=== PATIENT | female | born 1935 | race Caucasian/White ===

== ENCOUNTER → 2023-08-27 10:02 | Outpatient (REF) | payer OTHER, SELFPAY | LOC: RAD 10:02 | PROVIDERS: ATTENDING PHYSICIAN Internal Medicine | DX: Z78.9 Other specified health status (principal); M79.604 Pain in right leg; M79.605 Pain in left leg | CPT/HCPCS: 93922; 93925 ==

== ENCOUNTER 2023-11-12 08:13 | Emergency (ER) | payer OTHER, SELFPAY ==
[2023-11-12 08:18] VITALS: BP 185/117
--- NOTE | 2023-11-12 08:54 | ED.GENMED ---
History of Present Illness
General
Chief Complaint: Abdominal Symptoms
Source: patient and family (Daughter)
Exam Limitations: none
Time Seen by Provider: 11/12/23 08:21
Nursing documentation reviewed up to this point in time: agreed with
History of Present Illness
History of Present Illness:
88-year-old female with a past medical history of hypertension, chronic sinusitis who presents to the emergency room for evaluation of nausea and fatigue. Patient reports symptoms have been ongoing for the past 3 days�she reports that she has
nausea and lack of appetite. Because of that she has not been eating as much and has not been drinking as much as usual. She says that she is starting to feel very fatigued and generalized weakness. Came to the emergency room to be evaluated for
this. She denies any vomiting despite her nausea. Has not had any diarrhea. She denies any abdominal pain. She denies any chest pain. She denies any shortness of breath. She says she did have some palpitations yesterday but nothing consistent.
She denies any fever or chills but says that she has had subjective feeling of being 'hot all over.' She denies any dysuria or change in urinary frequency currently but says that earlier in the week she had some urinary symptoms that resolved.
She denies any other complaints. She does note that she has been on and off of doxycycline for chronic sinusitis says that she discontinued it a few days ago. No other new medications or adjustments to her medications.
Past History
Past History
ED Past Medical History: HTN
ED Past Surgical History: Gynecological and Other (Cataract surgery)
Review of Systems
Review of Systems
All Other Systems: ROS reviewed and negative except as documented in HPI and ROS
Constitutional: Reports fatigue; Denies fever or chills
EENT: Denies sore throat or runny nose
Respiratory: Denies cough or trouble breathing
Cardiac: Denies chest pain
ABD/GI: Reports nausea and anorexia; Denies abdominal pain, vomiting or diarrhea
: Denies dysuria, frequency or flank pain
Musculoskeletal: Denies neck pain or back pain
Neurological: Denies headache
Phy Exam
Physical Exam
Physical Exam:
General: Awake, alert, oriented x3; no acute distress
Head: Normocephalic, atraumatic
Eyes: Conjunctiva normal, sclera anicteric
Throat: Airway intact, dry mucous membranes
Neck: Trachea midline, supple without meningismus
Lungs: Clear to auscultation bilaterally, no wheezing, rales, rhonchi
Heart: Regular rate and rhythm, no murmurs, gallops, or rubs
Abd: Soft, non distended, very mild tenderness in the right upper quadrant and epigastric region but no peritoneal signs, no abdominal masses
Neuro: Cranial nerves grossly intact, speech fluid, no gross motor or sensory deficits
Skin: no rash
Extremities: No edema in extremities, equal pulses in all extremities
Scores
Heart Failure Risk
Heart Failure Risk Score: Not Applicable
Heart Score for Chest Pain Patients
STEMI patient?: Not applicable
Withdrawal Assessment of Alcohol
Withdrawal Assessment Completed?: Not applicable
Course
Orders/Labs/Results
Orders:
Orders
11/12/23 08:22
Electrocardiogram (*1) Urgent
Reason for Study: Fatigue / Weakness
EKG- Treatment ONCE
COVID-19 Antigen Urgent
Source: Nasal Swab
Complete Blood Count/With Diff Urgent
Comprehensive Metabolic Panel Urgent
Lipase Urgent
Troponin I Urgent
Urinalysis Reflex To Culture Urgent
11/12/23 08:53
NSS 1000mL Bolus over 1 hr 0.9% Sodium Chloride 1000 ml [Nss] 1,000 ml IV BOLUS
US Abdomen Complete/Upper Urgent
Comment:
Reason For Exam: upper abd tenderness, nausea
Vital Signs
Initial and Last Documented VS:
Initial Vital Signs
Temp Pulse Resp BP Pulse Ox
36.7 C 74 18 185/117 97
11/12/23 08:18 11/12/23 08:18 11/12/23 08:18 11/12/23 08:18 11/12/23 08:18
Last Documented Vital Signs
Temp Pulse Resp BP Pulse Ox
36.7 C 74 18 185/117 97
11/12/23 08:18 11/12/23 08:18 11/12/23 08:18 11/12/23 08:18 11/12/23 08:18
MDM/Problems Addressed
Differential Diagnosis Includes:
Nausea: GERD/gastritis, cholelithiasis, viral syndrome, anginal equivalent
Fatigue: Dehydration, electrolyte derangement, anemia
MDM/Problems Addressed:
88-year-old female presents for evaluation of nausea for the past 3 days associate with decreased appetite, decreased p.o. intake and resultant generalized weakness/fatigue. Hypertensive but otherwise normal vitals. Physical exam as above. Will
check an EKG. Will plan to place an IV check labs including a CBC and a CMP, troponin. Will check lipase. Send COVID swab. Will send for an upper abdominal ultrasound. Will provide some IV fluids and antiemetic. Monitor closely reassess after
the above.
Acute Exacerbation and/or Progression of Chronic Illness: HTN
*Radiology
Radiology exam reviewed: radiology read reviewed
*Pulse Oximetry
Patient hypoxic: no
*Critical Care Note
Total Time (30-74mins, 75-104mins- exclusive of procedures): Not Applicable
Data Reviewed
Review of Other/Old Records Reveals: Labs and Records
Source: patient and family
ED Attending Note
-
Portions of this chart may have been created with voice recognition software.� Occasional wrong word or��sound alike� substitutions may have occurred due to the inherent limitations of voice recognition software.
Discharge Plan
Departure
Prescriptions:
No Action
temazepam 15 mg Capsule
15 mg PO HS PRN (Reason: sleep)
diazepam 2 mg Tablet
2 mg PO TIDPRN PRN (Reason: anxiety/dizziness)
bismuth subsalicylate [Pepto-Bismol] 262 mg/15 mL Suspension
524 mg PO TIDPRN PRN (Reason: stomach issues)
Tylenol Sinus 30-500 mg Tablet
1 tab PO DAILY
Pepto-Bismol 262 mg Tablet
262 mg PO TIDPRN PRN (Reason: stomach issues)
azelastine 137 mcg (0.1 %) [place],Non-Aerosol
2 spray INTRANASAL BID
fluticasone propionate [Flonase] 50 mcg/actuation [place],Suspension
2 spray INTRANASAL DAILY
levothyroxine 112 mcg Tablet
112 mcg PO MOTUWETHFRSA@0800
levothyroxine 112 mcg Tablet
56 mcg PO CAST@0800
Opcon-A 0.40076-6.315 % Drops
1 drp BOTH EYES BIDPRN PRN (Reason: eye irritation)
hydrochlorothiazide 12.5 mg Tablet
12.5 mg PO DAILY PRN (Reason: systolic>160)
Mylanta suspension
1 dose PO BIDPRN PRN (Reason: stomach issues)
prednisolone acetate 1 % Drops,Suspension
1 drp BOTH EYES DAILYPRN PRN (Reason: eye irritation)
Interventions
Interventions:
*Risk Screen - Suicide Last Done: 11/12/23 08:18
*General Assessment Last Done: 11/12/23 08:18
*Neglect/Abuse Screening Last Done: 11/12/23 08:18
*ED COVID-19 Vaccine History Last Done: 11/12/23 08:18
Discharge Date and Time
Print Language: URDU
[2023-11-12] MEDS: PROTONIX IV 40 MG IV (09:19)
[2023-11-12] MEDS: ZOFRAN 4 MG IV (09:19)
[2023-11-12] MEDS: NSS 1000 IV (09:19)
[2023-11-12 09:27] LABS: Urine Albumin Negative (Neg - Trace); Urine Bilirubin Negative (Negative); Urine Character Clear (Clear); Urine Color Yellow; Urine Glucose Negative (Negative); Urine Ketone Negative (Negative); Urine Leukocyte Negative (Negative); Urine Nitrite Negative (Negative); Urine Occult Blood Trace (Negative); Urine Specific Gravity 1.015 (<1.030); Urine Urobilinogen Negative (Neg - 1+)
[2023-11-12 09:32] LABS: % Basophils 0.5 % (0-2); % Eosinophils 0.9 % (0-6); % Immature Granulocytes 0.3 % (0-0.5); % Lymphocytes 18.9 % (20.5-51.1); % Neutrophils 70.4 % (42.2-75.2); Absolute Eosinophils 0.1 10^3/uL (0-0.7); Absolute Lymphocytes 1.1 10^3/uL (1.2-3.4); Absolute Monocytes 0.5 10^3/uL (0.1-0.6); Absolute Neutrophils 4.1 10^3/uL (1.4-6.5); Hematocrit 41.4 % (37.0-47.0); Hemoglobin 14.6 g/dL (12.0-16.0); Mean Corp Hgb Conc. 35.3 g/dL (33.0-37.0); Mean Corpuscular Hgb 30.8 pg (27.0-31.0); Mean Corpuscular Volume 87.3 fL (81.0-99.0); Mean Platelet Volume 10.5 fL (7.4-10.4); Nucleated Red Blood Cells % 0 %; Platelet Count 234 10^3/uL (130-400); Red Blood Cell Count 4.74 10^6/uL (4.20-5.40); Red Cell Dist. Width 12.4 % (11.5-14.5); White Blood Cell Count 5.8 10^3/uL (4.8-10.8)
[2023-11-12 09:36] LABS: ALT (SGPT) 20 U/L (0-35); AST (SGOT) 27 U/L (14-36); Albumin 4.5 g/dl (3.5-5.0); Alkaline Phosphatase 70 U/L (38-126); Blood Urea Nitrogen 16 mg/dl (7-17); Calcium 9.9 mg/dl (8.4-10.2); Carbon Dioxide 27 mmol/L (22-30); Chloride 103 mmol/L (98-107); Glucose 110 mg/dl (70-99); Lipase 149 U/L (23-300); Potassium 3.2 mmol/L (3.5-5.1); Sodium 139 mmol/L (135-145); Total Bilirubin 0.8 mg/dl (0.2-1.3); Total Protein 7.3 g/dl (6.3-8.2); eGFR > 60.00
[2023-11-12 09:45] LABS: COVID-19 Antigen Negative (Negative)
[2023-11-12 09:47] LABS: Troponin I < 0.012 ng/ml
[2023-11-12 10:50] LABS: Urine Red Blood Cell 0-2 /HPF (0-2); Urine White Cell 0-2 /HPF (0-5)
[2023-11-12 12:22] VITALS: BP 191/80
== END 2023-11-12 12:25 | disposition home or self-care (01) ==
LOC: EMR 08:13
PROVIDERS: EMERGENCY PHYSICIAN Emergency Medicine; FAMILY PHYSICIAN Internal Medicine
DX: R11.0 Nausea (principal); R53.83 Other fatigue; I10 Essential (primary) hypertension; Z11.52 Encounter for screening for COVID-19
CPT/HCPCS: 99284; 96374; 96375; 76700; 80053; 81003; 81015; 83690; 84484; 85025; 87811; 93005

== ENCOUNTER → 2024-03-21 15:20 | Outpatient (REF) | payer MEDICARE, SELFPAY | LOC: HWRAD 15:20 | PROVIDERS: ATTENDING PHYSICIAN Otolaryngology; FAMILY PHYSICIAN Internal Medicine | DX: R09.81 Nasal congestion (principal); J32.0 Chronic maxillary sinusitis | CPT/HCPCS: 70486 ==

== ENCOUNTER → 2024-05-25 15:24 | Outpatient (REF) | payer MEDICARE, SELFPAY | LOC: HWWDC 15:24 | PROVIDERS: ATTENDING PHYSICIAN Internal Medicine | DX: Z12.31 Encounter for screening mammogram for malignant neoplasm of breast (principal) | CPT/HCPCS: 77063; 77067 ==

== ENCOUNTER → 2024-11-01 10:38 | Outpatient (REF) | payer MEDICARE, SELFPAY | LOC: RAD 10:38 | PROVIDERS: ATTENDING PHYSICIAN Internal Medicine | DX: R10.32 Left lower quadrant pain (principal) | CPT/HCPCS: 74177; Q9967 ==

== ENCOUNTER 2024-11-08 13:09 | Emergency (ER) | payer MEDICARE, SELFPAY ==
[2024-11-08 13:29] VITALS: BP 201/109
[2024-11-08 14:05] LABS: Urine Albumin Negative (Neg - Trace); Urine Bilirubin Negative (Negative); Urine Character Clear (Clear); Urine Color Yellow; Urine Glucose Negative (Negative); Urine Ketone Negative (Negative); Urine Leukocyte 1+ (Negative); Urine Nitrite Negative (Negative); Urine Occult Blood 1+ (Negative); Urine Specific Gravity 1.005 (<1.030); Urine Urobilinogen Negative (Neg - 1+)
[2024-11-08 14:06] LABS: % Basophils 0.9 % (0-2); % Eosinophils 0.6 % (0-6); % Immature Granulocytes 0.3 % (0-0.5); % Lymphocytes 19.8 % (20.5-51.1); % Monocytes 10.5 % (1.7-9.3); % Neutrophils 67.9 % (42.2-75.2); Absolute Basophils 0.1 10^3/uL (0-0.2); Absolute Lymphocytes 1.3 10^3/uL (1.2-3.4); Absolute Monocytes 0.7 10^3/uL (0.1-0.6); Absolute Neutrophils 4.6 10^3/uL (1.4-6.5); Hemoglobin 13.9 g/dL (12.0-16.0); Mean Corp Hgb Conc. 34.8 g/dL (33.0-37.0); Mean Corpuscular Hgb 30.8 pg (27.0-31.0); Mean Corpuscular Volume 88.7 fL (81.0-99.0); Mean Platelet Volume 10.2 fL (7.4-10.4); Nucleated Red Blood Cells % 0 %; Platelet Count 240 10^3/uL (130-400); Red Blood Cell Count 4.51 10^6/uL (4.20-5.40); Red Cell Dist. Width 12.7 % (11.5-14.5); White Blood Cell Count 6.8 10^3/uL (4.8-10.8)
[2024-11-08 14:17] LABS: ALT (SGPT) 44 U/L (0-35); AST (SGOT) 46 U/L (14-36); Albumin 4.8 g/dl (3.5-5.0); Alkaline Phosphatase 69 U/L (38-126); Blood Urea Nitrogen 16 mg/dl (7-17); Calcium 10.2 mg/dl (8.4-10.2); Carbon Dioxide 25 mmol/L (22-30); Chloride 101 mmol/L (98-107); Glucose 119 mg/dl (70-99); Potassium 3.4 mmol/L (3.5-5.1); Sodium 134 mmol/L (135-145); Total Bilirubin 0.8 mg/dl (0.2-1.3); Total Protein 7.5 g/dl (6.3-8.2); eGFR 54.53
[2024-11-08 15:03] LABS: Urine Urothelial Cell 0-2 /LPF (FEW)
[2024-11-08 15:04] LABS: Urine Red Blood Cell 0-2 /HPF (0-2); Urine White Cell 0-2 /HPF (0-5)
[2024-11-08 15:05] LABS: Urine Bacteria Few (Negative)
[2024-11-08 18:32] VITALS: BP 169/136
[2024-11-08 19:46] VITALS: BP 189/125
[2024-11-08 20:07] VITALS: BP 183/99
--- NOTE | 2024-11-08 22:11 | ED.GENMED ---
History of Present Illness
General
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
Source: patient and family (daughter)
Exam Limitations: none
Time Seen by Provider: 11/08/24 18:07
Nursing documentation reviewed up to this point in time: agreed with
History of Present Illness
History of Present Illness:
Patient to ED wtih complaint of pelvic pressure when sitting. Has been using AZO with relief but when she stops med the discomfort returns. SHe states she was treated recently for UTI and is unsure if infection cleared. SHe has been referred to
urology by PCP, has appt on 12/04. Brought to ED by daughter for eval. SHe denies fever/chills, n/v/d. No abdominal or back pain. No pain with urination
Past History
Past History
ED Past Medical History: HTN
ED Past Surgical History: Gynecological and Other (Cataract surgery)
Review of Systems
Review of Systems
Allergies reviewed?: Yes
All Other Systems: ROS reviewed and negative except as documented in HPI and ROS
Phy Exam
General Physical Exam
General Presentation: well appearing and no apparent distress
General age: appears stated age
General Skin: warm and dry
General Habitus: normal
Cardiovascular Exam
Cardiovascular Exam: regular rate/rhythm
Pulmonary Exam
Pulmonary Exam: lungs clear and no respiratory distress
Gastrointestinal Exam
Gastrointestinal Exam: normal bowel sounds, non tender, soft, no organomegaly and non distended
Rectal Exam: normal external exam, normal sphincter tone and no stool
Musculoskeletal Exam
Musculoskeletal Exam: full ROM and neuro vasc intact
Skin Exam
Skin Exam: normal color, warm/dry and no rash
Psychiatric Exam
Psychiatric Exam: normal mood/affect
Course
Orders/Labs/Results
Orders:
Orders
11/08/24 13:54
Complete Blood Count/With Diff Urgent
Comprehensive Metabolic Panel Urgent
Urinalysis Reflex To Culture Urgent
Date Specimen was Collected: 11/08/24
Time Specimen was Collected: 13:45
Urine Microscopic Reflex Cult Urgent
Urine Culture Urgent
KELLY Source: U
Specimen Description:
Date Specimen was Collected: 11/08/24
Time Specimen was Collected: 13:45
Abnormal Lab Results
11/08/24
13:54
Absolute Monos (auto) 0.7 H 10^3/uL
(0.1-0.6)
Lymphocytes % 19.8 L %
(20.5-51.1)
Monocytes % 10.5 H %
(1.7-9.3)
Sodium 134 L mmol/L
(135-145)
Potassium 3.4 L mmol/L
(3.5-5.1)
Glucose 119 H mg/dl
(70-99)
AST 46 H U/L
(14-36)
ALT 44 H U/L
(0-35)
Ur Occult Blood Reflex 1+ A
(Negative)
Leukocyte Esterase Rfl 1+ A
(Negative)
Urine Bacteria (Reflex) Few A
(Negative)
11/08/24 13:54
11/08/24 13:54
Vital Signs
Initial and Last Documented VS:
Initial Vital Signs
Temp Pulse Resp BP Pulse Ox
97.9 F 80 18 201/109 97
11/08/24 13:29 11/08/24 13:29 11/08/24 13:29 11/08/24 13:29 11/08/24 13:29
Last Documented Vital Signs
Temp Pulse Resp BP Pulse Ox
97.9 F 73 16 183/99 97
11/08/24 13:29 11/08/24 19:50 11/08/24 19:50 11/08/24 20:07 11/08/24 22:13
*Radiology
Radiology exam reviewed: radiology read reviewed
*Pulse Oximetry
SaO2: 97
Oxygen Mode of Delivery: Room air
Patient hypoxic: no
*Critical Care Note
Total Time (30-74mins, 75-104mins- exclusive of procedures): Not Applicable
Update Note
Update Note:
Patient to ED with complaint of 'pelvic pressure' with sitting. She had hysterectomy prior and reports vaginal atrophy. Inserts vaginal cream with a qtip. SHe also notes that urethra has atrophied. SHe has an appoinement on 12/[address]
of abd and pelvis last week noted colitis and she has been taking flagyl for this. CT also noted a large amt of stool at rectum and distal colon. Rectal exam performed, no stool in rectum. Labs reviewed with her. No concerning findings. UA neg
for UTI. VSS and she remains afebrile. WIll discharge home and she will follow up with PCP this week, urololgy as scheduled. Given instructions on s/s to return ot ED and she is agreeable to plan.
ED Attending Note
-
Portions of this chart may have been created with voice recognition software.� Occasional wrong word or��sound alike� substitutions may have occurred due to the inherent limitations of voice recognition software.
Discharge Plan
Departure
Patient Disposition: Home (Routine Discharge)
Date of Disposition: 11/08/24
Time of Disposition: 19:47
Patient with high blood pressure during this ER visit?: No
Condition: Good
Covid-19: Not Applicable
Discharge Problem:
Pelvic pressure in female
Instructions: Pelvic pain - ED discharge instructions
Prescriptions:
No Action
temazepam 15 mg Capsule
15 mg PO HS PRN (Reason: sleep)
diazepam 2 mg Tablet
2 mg PO TIDPRN PRN (Reason: anxiety/dizziness)
bismuth subsalicylate [Pepto-Bismol] 262 mg/15 mL Suspension
524 mg PO TIDPRN PRN (Reason: stomach issues)
Tylenol Sinus 30-500 mg Tablet
1 tab PO DAILY
Pepto-Bismol 262 mg Tablet
262 mg PO TIDPRN PRN (Reason: stomach issues)
azelastine 137 mcg (0.1 %) [place],Non-Aerosol
2 spray INTRANASAL BID
fluticasone propionate [Flonase] 50 mcg/actuation [place],Suspension
2 spray INTRANASAL DAILY
levothyroxine 112 mcg Tablet
112 mcg PO MOTUWETHFRSA@0800
levothyroxine 112 mcg Tablet
56 mcg PO CAST@0800
Opcon-A 0.26793-4.315 % Drops
1 drp BOTH EYES BIDPRN PRN (Reason: eye irritation)
hydrochlorothiazide 12.5 mg Tablet
12.5 mg PO DAILY PRN (Reason: systolic>160)
Mylanta suspension
1 dose PO BIDPRN PRN (Reason: stomach issues)
prednisolone acetate 1 % [place],Suspension
1 drp BOTH EYES DAILYPRN PRN (Reason: eye irritation)
pantoprazole [Protonix] 40 mg tablet,delayed release (DR/EC)
40 mg PO DAILY Qty: 30 0RF
sucralfate [Carafate] 100 mg/mL suspension
10 ml PO ACHS Qty: 1000 0RF
Referrals:
Dagoberto Rios MD [Family Provider, Internal Medicine]
Activity Restrictions/Additional Instructions:
Follow up with urology as scheduled. Return to the emergency department immediately for any changes in/worsening of your symptoms.
Interventions
Interventions:
*Risk Screen - Suicide Last Done: 11/08/24 18:43
*General Assessment Last Done: 11/08/24 18:38
*Neglect/Abuse Screening Last Done: 11/08/24 18:43
*ED- Fall Risk Assessment Last Done: 11/08/24 20:10
*ED COVID-19 Vaccine History Last Done: 11/08/24 18:43
*Nursing Disposition Last Done: 11/08/24 20:10
ED-Female Genitourinary Assessment Last Done: 11/08/24 18:30
Discharge Date and Time
Discharge Date/Time: 11/08/24 20:10
Print Language: POLISH
== END 2024-11-08 20:10 | disposition home or self-care (01) ==
LOC: EMR 13:09
PROVIDERS: Student in an Organized Health Care Education/Training Program; EMERGENCY PHYSICIAN Emergency Medicine; FAMILY PHYSICIAN Internal Medicine
DX: R10.2 Pelvic and perineal pain (principal); I10 Essential (primary) hypertension; E03.9 Hypothyroidism, unspecified; F41.9 Anxiety disorder, unspecified; H40.9 Unspecified glaucoma; Z87.440 Personal history of urinary (tract) infections
CPT/HCPCS: 99283; 80053; 81003; 81015; 85025; 87086

== ENCOUNTER 2024-11-18 07:23 | Emergency (ER) | payer MEDICARE, SELFPAY ==
[2024-11-18] VITALS (9 sets, daily range): BP systolic 142–210; BP diastolic 78–108; PULSE 62; O2SAT 98
[2024-11-18 07:43] LABS: Hematocrit 41.9 % (37.0-47.0); Hemoglobin 14.8 g/dL (12.0-16.0); Mean Corp Hgb Conc. 35.3 g/dL (33.0-37.0); Mean Corpuscular Volume 89.5 fL (81.0-99.0); Nucleated Red Blood Cells % 0 %; Platelet Count 253 10^3/uL (130-400); Red Cell Dist. Width 13.0 % (11.5-14.5)
[2024-11-18 07:50] LABS: Urine Character Clear (Clear)
[2024-11-18 08:00] LABS: Urine Red Blood Cell 0-2 /HPF (0-2)
[2024-11-18 08:12] LABS: ALT (SGPT) 29 U/L (0-35); AST (SGOT) 25 U/L (14-36); Alkaline Phosphatase 58 U/L (38-126); Blood Urea Nitrogen 13 mg/dl (7-17); Calcium 10.1 mg/dl (8.4-10.2); Chloride 102 mmol/L (98-107); Estimated Creatinine Clearance 37 ml/min; Glucose 117 mg/dl (70-99); Potassium 3.5 mmol/L (3.5-5.1); Sodium 137 mmol/L (135-145); Total Protein 7.1 g/dl (6.3-8.2); eGFR > 60.00
[2024-11-18 08:22] LABS: Albumin 4.6 g/dl (3.5-5.0); Carbon Dioxide 25 mmol/L (22-30)
--- NOTE | 2024-11-18 08:38 | ED.GENMED ---
History of Present Illness
<Casey Arora PA-C - Last Filed: 11/18/24 13:08>
General
Chief Complaint: Generalized Pain
Source: patient
Exam Limitations: none
Time Seen by Provider: 11/18/24 07:25
History of Present Illness
History of Present Illness:
89-year-old female who lives by herself presents via EMS from home with generalized weakness. This has been an intermittent issue for her. She was just here 3 days ago for pelvic pressure. Several weeks ago she was having lower abdominal and
pelvic pressure. She was diagnosed with colitis and diverticulitis on CT scan. She was on Flagyl and amoxicillin for this. Her pelvic pressure seem to improved. She has a hard to describe sensation throughout her body which she describes as
burning and needles diffusely. This morning she was so weak she could not walk. She does not feel quite clear in her head. She also states she has not been sleeping. She tried her sleeping medications at home without relief. No reported fever.
No significant chest pain.
Past History
<BOOM Gutierrez Last Filed: 11/18/24 13:08>
Past History
ED Past Medical History: HTN
ED Past Surgical History: Gynecological and Other (Cataract surgery)
Phy Exam
<BOOM Gutierrez Last Filed: 11/18/24 13:08>
Physical Exam
Physical Exam:
General: Well-developed female no acute respiratory distress
HEENT: Normocephalic atraumatic
Heart: Regular rate and rhythm
Lungs: Clear no wheeze
Abdomen is soft nontender nondistended
Neurologic exam: No unilateral weakness no facial droop good strength to the upper and lower extremities
Skin is warm no rash
Course
<BOOM Gutierrez Last Filed: 11/18/24 13:08>
Orders/Labs/Results
Orders:
Orders
11/18/24 07:36
CBC/With Diff [Complete Blood Count/With Diff] Urgent
Comprehensive Metabolic Panel Urgent
Urinalysis Reflex To Culture Urgent
Date Specimen was Collected: 06/16/22
Time Specimen was Collected: 11:08
Urine Microscopic Reflex Cult Urgent
11/18/24 07:51
Electrocardiogram (*1) Urgent
Reason for Study: Fatigue / Weakness
CT Head W/o Iv Contrast Urgent
Comment:
Reason For Exam: weakness, headache
EKG- Treatment ONCE
CR Chest - 2 Views Urgent
Comment:
Reason For Exam: weakness
11/18/24 08:06
COVID-19 Antigen Urgent
Source: Nasal Swab
Troponin I Urgent
11/18/24 08:35
Hydrochlorothiazide [[place]] 12.5 mg PO NOW ONE
11/18/24 09:56
Electrocardiogram (*1) Urgent
Reason for Study: Chest Pain
EKG- Treatment ONCE
11/18/24 10:02
Troponin I Urgent
11/18/24 11:13
Case Management Consult ONCE
Case Management Consult: Discharge Planning
Lorazepam [Ativan] 1 mg PO NOW STA
11/18/24 11:42
PT Consult [Pt Eval And Treat] Urgent
Activity Level: Ambulate
Abnormal Lab Results
11/18/24 11/18/24 11/18/24
07:36 08:06 10:02
MCH 31.6 H pg
(27.0-31.0)
Monocytes % 11.3 H %
(1.7-9.3)
Glucose 117 H mg/dl
(70-99)
Troponin I 0.087 H* ng/ml 0.075 H* ng/ml
Ur Occult Blood Reflex 2+ A
(Negative)
Urine Bacteria (Reflex) Few A
(Negative)
11/18/24 07:36
11/18/24 07:36
Vital Signs
Initial and Last Documented VS:
Initial Vital Signs
Temp Pulse Resp BP Pulse Ox
98 F 78 20 207/108 99
11/18/24 07:26 11/18/24 07:26 11/18/24 07:26 11/18/24 07:26 11/18/24 07:26
Last Documented Vital Signs
Temp Pulse Resp BP Pulse Ox
98 F 71 15 192/102 98
11/18/24 07:26 11/18/24 12:30 11/18/24 12:30 11/18/24 12:00 11/18/24 09:00
<Johan Mckeon, DO - Last Filed: 11/18/24 11:08>
Orders/Labs/Results
Orders:
Orders
11/18/24 07:36
CBC/With Diff [Complete Blood Count/With Diff] Urgent
Comprehensive Metabolic Panel Urgent
Urinalysis Reflex To Culture Urgent
Date Specimen was Collected: 06/16/22
Time Specimen was Collected: 11:08
Urine Microscopic Reflex Cult Urgent
11/18/24 07:51
Electrocardiogram (*1) Urgent
Reason for Study: Fatigue / Weakness
CT Head W/o Iv Contrast Urgent
Comment:
Reason For Exam: weakness, headache
EKG- Treatment ONCE
CR Chest - 2 Views Urgent
Comment:
Reason For Exam: weakness
11/18/24 08:06
COVID-19 Antigen Urgent
Source: Nasal Swab
Troponin I Urgent
11/18/24 08:35
Hydrochlorothiazide [[place]] 12.5 mg PO NOW ONE
11/18/24 09:56
Electrocardiogram (*1) Urgent
Reason for Study: Chest Pain
EKG- Treatment ONCE
11/18/24 10:02
Troponin I Urgent
11/18/24 11:13
Case Management Consult ONCE
Case Management Consult: Discharge Planning
Lorazepam [Ativan] 1 mg PO NOW STA
11/18/24 11:42
PT Consult [Pt Eval And Treat] Urgent
Activity Level: Ambulate
Abnormal Lab Results
11/18/24 11/18/24 11/18/24
07:36 08:06 10:02
MCH 31.6 H pg
(27.0-31.0)
Monocytes % 11.3 H %
(1.7-9.3)
Glucose 117 H mg/dl
(70-99)
Troponin I 0.087 H* ng/ml 0.075 H* ng/ml
Ur Occult Blood Reflex 2+ A
(Negative)
Urine Bacteria (Reflex) Few A
(Negative)
11/18/24 07:36
11/18/24 07:36
Vital Signs
Initial and Last Documented VS:
Initial Vital Signs
Temp Pulse Resp BP Pulse Ox
98 F 78 20 207/108 99
11/18/24 07:26 11/18/24 07:26 11/18/24 07:26 11/18/24 07:26 11/18/24 07:26
Last Documented Vital Signs
Temp Pulse Resp BP Pulse Ox
98 F 71 15 192/102 98
11/18/24 07:26 11/18/24 12:30 11/18/24 12:30 11/18/24 12:00 11/18/24 09:00
<Casey Arora PA-C - Last Filed: 11/18/24 13:08>
MDM/Problems Addressed
Differential Diagnosis Includes:
Patient with multiple vague complaints but most pronounced is generalized weakness with inability to walk today etiology somewhat unclear has had recent visits in the past. No abdominal pain to note at this time. Will check labs CT head x-ray
urinalysis.
<Casey Arora PA-C - Last Filed: 11/18/24 13:08>
*Pulse Oximetry
SaO2: 99
Oxygen Mode of Delivery: Room air
Patient hypoxic: no
*Critical Care Note
Total Time (30-74mins, 75-104mins- exclusive of procedures): Not Applicable
<Casey Arora PA-C - Last Filed: 11/18/24 13:08>
Update Note
Update Note:
Patient reevaluated multiple times. Troponin slightly elevated however repeat troponin is better. Patient does not have any chest pain. She had diffuse body tingling. Female nurse Katelynn was used as client finance analyst to inspect the patient's vaginal
area. There is a cracked area of skin superior to the labia that is slightly bleeding. No surrounding erythema. No evidence of infection otherwise. Spoke with emergency room attending saw the patient. Also spoke with patient case coordinator. At this
point no medical indication for admission. She seems much better after given Ativan. She walked well with therapy. Will discharge home with home PT. Will prescribe several tablets of Ativan to help her if needed. Discussed with son who is in
the room.
ED Attending Note
<Casey Arora PA-C - Last Filed: 11/18/24 13:08>
-
Portions of this chart may have been created with voice recognition software.� Occasional wrong word or��sound alike� substitutions may have occurred due to the inherent limitations of voice recognition software.
<Johan Mckeon DO - Last Filed: 11/18/24 11:08>
ED Attending Note
Patient seen and examined by attending physician: Yes
I performed the substantive portion of visit, reviewed & personally made and approve the management plan that is documented in note by myself or JUANA.: Yes
ED Attending Note:
Seen with SAVANA examined independently 89-year-old female few weeks ago treat with a UTI had a CAT scan diagnosed diverticulitis second course of antibiotics sounds like Lesley Roque presents with vaginal pain, numbness and tingling fatigue weakness
workup here noted, etiology not entirely clear perhaps related to antibiotics,?, Troponins are noted trending down, sounds like she has had some sleep aids which are helping her transiently
Discharge Plan
Departure
Patient Disposition: Home (Routine Discharge)
Date of Disposition: 11/18/24
Time of Disposition: 13:02
Patient with high blood pressure during this ER visit?: Yes
Discharge Problem:
Anxiety
Instructions: BLOOD PRESSURE
Prescriptions:
New
lorazepam [Ativan] 0.5 mg tablet
0.5 mg PO BID PRN (Reason: anxiety) Qty: 10 0RF
No Action
temazepam 15 mg Capsule
15 mg PO HS PRN (Reason: sleep)
diazepam 2 mg Tablet
2 mg PO TIDPRN PRN (Reason: anxiety/dizziness)
bismuth subsalicylate [Pepto-Bismol] 262 mg/15 mL Suspension
524 mg PO TIDPRN PRN (Reason: stomach issues)
Tylenol Sinus 30-500 mg Tablet
1 tab PO DAILY
Pepto-Bismol 262 mg Tablet
262 mg PO TIDPRN PRN (Reason: stomach issues)
azelastine 137 mcg (0.1 %) [place],Non-Aerosol
2 spray INTRANASAL BID
fluticasone propionate [Flonase] 50 mcg/actuation [place],Suspension
2 spray INTRANASAL DAILY
levothyroxine 112 mcg Tablet
112 mcg PO MOTUWETHFRSA@0800
levothyroxine 112 mcg Tablet
56 mcg PO CAST@0800
Opcon-A 0.05739-9.315 % Drops
1 drp BOTH EYES BIDPRN PRN (Reason: eye irritation)
hydrochlorothiazide 12.5 mg Tablet
12.5 mg PO DAILY PRN (Reason: systolic>160)
Mylanta suspension
1 dose PO BIDPRN PRN (Reason: stomach issues)
prednisolone acetate 1 % Drops,Suspension
1 drp BOTH EYES DAILYPRN PRN (Reason: eye irritation)
pantoprazole [Protonix] 40 mg tablet,delayed release (DR/EC)
40 mg PO DAILY Qty: 30 0RF
sucralfate [Carafate] 100 mg/mL suspension
10 ml PO ACHS Qty: 1000 0RF
Referrals:
Dagoberto Rios MD [Family Provider, Internal Medicine]
Activity Restrictions/Additional Instructions:
Use Ativan if needed for anxiety. Return here for worsening symptoms. Continue your current medication otherwise. Follow-up with your family doctor
Interventions
Interventions:
*Risk Screen - Suicide Last Done: 11/18/24 07:26
*General Assessment Last Done: 11/18/24 07:26
*Neglect/Abuse Screening Last Done: 11/18/24 07:26
ED-Female Genitourinary Assessment Last Done: 11/18/24 08:37
Discharge Date and Time
Print Language: BANGLADESHI
[2024-11-18 08:59] LABS: Troponin I 0.087 ng/ml
[2024-11-18] MEDS: ORETIC 12.5 MG PO (09:08)
[2024-11-18 09:09] LABS: COVID-19 Antigen Negative (Negative)
[2024-11-18 10:49] LABS: Troponin I 0.075 ng/ml
[2024-11-18] MEDS: ATIVAN 1 MG PO (11:33)
--- NOTE | 2024-11-18 12:12 | CM ---
CM following re:discharge planning.
CM consulted to assist pt with discharge planning.
Reviewed pt's chart, met with pt and pt's son Christian at bedside [phone].
Pt is an 89 year old female, arrived to ER with primary concerns of Generalized weakness.
Pt reports she has been living alone in an apartment for the past 8 years since her , 1st floor, no steps, has 2 supportive children. Pt reports she has a walker and uses it as needed. Pt reports she has cleaning lady on a
monthly basis. Pt reports she has friends with the same age and they have been talking about aging process and physical declining part of it. Pt reports she has half-way care insurance policy with [employer] and she will initiate utilizing their
services. Both pt and her son are aware of 90 days policy tro start services. Pt stated her utilized manager terminal care insurance policy and she is aware of the process. Pt requested VN services: RN, PT, OT and SW o help with navigation of
utilizing manager terminal care insurance and other community based resources.
VN choices provided, pt preferred [facility]. A referral to [facility] made.
Please fax discharge instructions to [facility] at [phone]
D/C plan: home with [facility] and family support. Son to transport.
== END 2024-11-18 13:43 | disposition home or self-care (01) ==
LOC: EMR 07:23
PROVIDERS: Physician Assistant; EMERGENCY PHYSICIAN Emergency Medicine; FAMILY PHYSICIAN Internal Medicine
DX: F41.9 Anxiety disorder, unspecified (principal); I10 Essential (primary) hypertension
CPT/HCPCS: 99285; 70450; 71046; 80053; 81003; 81015; 84484; 85025; 87811; 93005

== ENCOUNTER → 2024-12-26 07:28 | Outpatient (REF) | payer MEDICARE, SELFPAY | LOC: PAVMRI 07:28 | PROVIDERS: ATTENDING PHYSICIAN Physician Assistant; FAMILY PHYSICIAN Internal Medicine | DX: N88.8 Other specified noninflammatory disorders of cervix uteri (principal) | CPT/HCPCS: 72197; A9575 ==

== ENCOUNTER → 2025-02-13 12:10 | Outpatient (REF) | payer MEDICARE, SELFPAY | LOC: HWRAD 12:10 | PROVIDERS: ATTENDING PHYSICIAN Internal Medicine | DX: R61 Generalized hyperhidrosis (principal); R63.4 Abnormal weight loss | CPT/HCPCS: 71046 ==

== ENCOUNTER 2025-04-19 06:12 | Day surgery (SDC) | payer MEDICARE, SELFPAY ==
--- NOTE | 2025-03-24 12:49 | CM ---
Addendum entered by Wendy Pop RN 03/24/25 15:02:
Demographics: confirmed
Living situation: lives alone, second floor apartment
Support Person Post Operatively: daughter will stay with patient for a few days.
History of
[facility]N: yes, [facility]
SNF: No
Outpatient: Plans to use [facility]
Has patient purchased required equipment: yes
PCP: active
Pharmacy: [facility]
Post Operative Discharge Plan: SDS, with [facility] for two weeks.
Original Note:
CM reviewed medical records. CM was contacted by PAT to confirm SDS vs. ASHA. As per Mary at [facility], patient is requesting SDS with supervision by her daughter and two week [facility].
[2025-03-29 14:07] VITALS: BMI 27.3
[2025-03-29 14:27] LABS: Hematocrit 39.6 % (37.0-47.0); Hemoglobin 13.4 g/dL (12.0-16.0); Mean Corp Hgb Conc. 33.8 g/dL (33.0-37.0); Mean Corpuscular Volume 91.9 fL (81.0-99.0); Platelet Count 252 10^3/uL (130-400); Red Cell Dist. Width 12.6 % (11.5-14.5)
[2025-03-29 14:56] VITALS: BMI 27.3
[2025-03-29 14:56] LABS: ALT (SGPT) 21 U/L (0-35); AST (SGOT) 26 U/L (14-36); Albumin 4.2 g/dl (3.5-5.0); Alkaline Phosphatase 66 U/L (38-126); Blood Urea Nitrogen 24 mg/dl (7-17); Calcium 9.4 mg/dl (8.4-10.2); Carbon Dioxide 32 mmol/L (22-30); Chloride 98 mmol/L (98-107); Estimated Creatinine Clearance 33 ml/min; Glucose 75 mg/dl (70-99); Potassium 4.3 mmol/L (3.5-5.1); Sodium 136 mmol/L (135-145); Total Protein 6.8 g/dl (6.3-8.2); eGFR 54.53
[2025-03-30 09:16] LABS: Glycohemoglobin (HgbA1c) 5.5 % (4.0-5.9)
--- NOTE | 2025-03-30 15:07 | VNURNOTE ---
Patient is scheduled for an elective R TKA on 04/19 - she is a same day patient with Dr Preston. Spoke with patient prior to surgery. Introduced role of [facility] Liaison. Patient reports that she lives alone in 2nd story apartment.
Her daughter will be staying with her post op. patient has DME including rolling walker.
Discussed [facility] joint protocol and post surgical plans.
Reviewed that she will have HH x 2 weeks.
Patient selects [facility] for home care needs and will go to [facility] for outpatient PT. Scheduled for 05/08 . She does not want to move up outpt PT appt due to no rides available. Patient commented that she is overwhelmed with the multiple
calls she is getting to coordinate the post op process.
Patient is in agreement with plan. Advised to bring RW with her day of surgery. Referral placed in [facility].
Plan: [facility] per [facility] 04/19, home PT/OT x 2 wk then outpt PT on 05/08
[2025-04-19] VITALS (15 sets, daily range): BP systolic 117–213; BP diastolic 55–108; PULSE 64; O2SAT 99; BMI 27.3
[2025-04-19] MEDS: TYLENOL 650 MG PO (07:34)
[2025-04-19] MEDS: CELEBREX 200 MG PO (07:35)
[2025-04-19] MEDS: NORMOSOL-R/PLASMALYTE-A 1000 IV (07:36)
--- NOTE | 2025-04-19 08:00 | W.DS.TRANS ---
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
-
Discharge Instructions:
Sleep Apnea Risk Low
Discharge Diagnosis/Procedures R knee OA s/p R TKA w/ Dr Preston 04/19/25
Diet Other diet
Additional Diets Diabetic carb controlled x1 week for wound
healing/infection prevention.
Adequate hydration, minimize opioids, and wear
TEDs stockings to prevent low blood pressure/
dizziness.
Activity As tolerated,With Walker
Driving Restrictions Not until seen by your Dr
Bathing Restrictions OK to Shower
Other Services PT,VN
Wound Care Dressing to be removed 1 week post-surgery.
Instructions:
Stand-Alone Forms: SDS Total Hip and Knee D/C
Changes to Home Medications: Yes
Discharge Medications:
DC Medications w/original date entered in [facility]
azelastine 137 mcg (0.1 %) nasal spray 2 spray intranasal BID 11/12/23
diazepam 2 mg tablet 2 mg PO TIDPRN PRN anxiety/dizziness 11/12/23
fluticasone propionate 50 mcg/actuation nasal spray,suspension 2 spray intranasal DAILY 11/12/23
hydrochlorothiazide 12.5 mg tablet 12.5 mg PO DAILY PRN SBP>160 11/12/23
levothyroxine 112 mcg tablet 56 mcg PO CAST@0800 11/12/23
levothyroxine 112 mcg tablet 112 mcg PO MOTUWETHFRSA@0800 11/12/23
pseudoephedrine 30 mg-acetaminophen 500 mg tablet 1 tab PO DAILY 11/12/23
temazepam 15 mg capsule 15 mg PO HS PRN sleep 11/12/23
Sulfacetamide Sodium Ophthalmic Solution 1 dose ophthalmic (eye) PRN PRN Blepharitis 03/24/25
doxycycline hyclate 100 mg tablet 100 mg PO PRN PRN Infection/sinusitis 03/24/25
famotidine 40 mg tablet 40 mg PO PRN PRN Gastroesophagitis 03/24/25
celecoxib 200 mg capsule (Celebrex) 200 mg PO DAILY #14 caps 03/29/25
dexamethasone 4 mg tablet 4 mg PO BID Anti-inflammatory #7 tabs 03/29/25
famotidine 20 mg tablet (Pepcid) 20 mg PO HS #30 tabs 03/29/25
mupirocin 2 % topical ointment 1 applic intranasal BID #1 tube 03/29/25
ondansetron HCl 4 mg tablet 4 mg PO Q6H PRN nausea and vomiting #30 tabs 03/29/25
tramadol 50 mg tablet 50 - 100 mg (1 - 2 x 50 mg) PO Q6H PRN moderate-severe pain #30 tabs 03/29/25
acetaminophen 325 mg tablet (Tylenol) 650 mg (2 x 325 mg) PO QID #1 tab 04/19/25
aspirin 325 mg tablet 325 mg PO DAILY blood clot prevention #1 tab 04/19/25
docusate sodium 100 mg capsule (Colace) 100 mg PO BID stool softner #1 cap 04/19/25
magnesium hydroxide 400 mg/5 mL oral suspension (Milk of Magnesia) 30 ml PO HS PRN constipation #1 mL 04/19/25
sennosides 8.6 mg tablet (Senokot) 17.2 mg (2 x 8.6 mg) PO BID laxative #2 tabs 04/19/25
Home Medication Changes
celecoxib 200 mg capsule (Celebrex) 200 mg PO DAILY #14 caps 03/29/25
dexamethasone 4 mg tablet 4 mg PO BID Anti-inflammatory #7 tabs 03/29/25
famotidine 20 mg tablet (Pepcid) 20 mg PO HS #30 tabs 03/29/25
mupirocin 2 % topical ointment 1 applic intranasal BID #1 tube 03/29/25
ondansetron HCl 4 mg tablet 4 mg PO Q6H PRN nausea and vomiting #30 tabs 03/29/25
tramadol 50 mg tablet 50 - 100 mg (1 - 2 x 50 mg) PO Q6H PRN moderate-severe pain #30 tabs 03/29/25
acetaminophen 325 mg tablet (Tylenol) 650 mg (2 x 325 mg) PO QID #1 tab 04/19/25
aspirin 325 mg tablet 325 mg PO DAILY blood clot prevention #1 tab 04/19/25
docusate sodium 100 mg capsule (Colace) 100 mg PO BID stool softner #1 cap 04/19/25
magnesium hydroxide 400 mg/5 mL oral suspension (Milk of Magnesia) 30 ml PO HS PRN constipation #1 mL 04/19/25
sennosides 8.6 mg tablet (Senokot) 17.2 mg (2 x 8.6 mg) PO BID laxative #2 tabs 04/19/25
Pending Results: No
[2025-04-19] MEDS: ULTRAM 50 MG PO (11:37)
[2025-04-19] MEDS: ANCEF 5 IV (12:19)
[2025-04-19] MEDS: ZOFRAN 4 MG IV (12:19)
== END 2025-04-19 14:26 | disposition home health service (06) ==
LOC: SDS 06:12
PROVIDERS: ATTENDING PHYSICIAN Orthopaedic Surgery; FAMILY PHYSICIAN Internal Medicine; OTHER PHYSICIAN Physician Assistant
DX: M17.11 Unilateral primary osteoarthritis, right knee (principal)
CPT/HCPCS: 27447; C1776; C1713; 36415; 73560; 80053; 83036; 85027; 87070; 93005; 97162